=== PATIENT | male | born 1995 | race Caucasian/White ===

== ENCOUNTER 2018-05-16 21:01 | Emergency (ER) | payer BC | END 2018-05-16 21:17 | disposition left against medical advice (07) | LOC: ERS 21:01 | DX: Z53.21 Procedure and treatment not carried out due to patient leaving prior to being seen by health care provider (principal) ==

== ENCOUNTER 2018-05-16 21:36 | Emergency (ER) | payer BC, SELFPAY ==
[2018-05-16 22:29] LABS: #Basophils 0.1 thou/uL (0.0-0.2); #Lymphocytes 1.4 thou/uL (1.20-3.40); #Monocytes 0.8 thou/uL (0.11-0.59); #Neutrophils 6.4 thou/uL (1.40-6.50); %Basophils 0.9 % (0.0-1.0); %Eosinophils 0.1 % (0.0-10.0); %Lymphocytes 15.8 % (21.0-51.0); %Monocytes 9.3 % (0.0-10.0); %Neutrophils 73.9 % (42.0-75.0); Hemoglobin 15.4 g/dL (14.0-18.0); Mean Corpuscular HGB CONC 35.3 g/dL (32.0-36.0); Mean Corpuscular Hemoglobin 31.2 pg (27.0-31.0); Mean Corpuscular Volume 88.5 fL (78.0-98.0); Mean Platelet Volume 6.9 fL (7.4-10.4); Platelet Count 224 thou/uL (130-400); RBC Distribution Width 10.9 % (11.5-14.5); Red Blood Cell (RBC) Count 4.92 mill/uL (4.70-6.10); White Blood Cell (WBC) Count 8.7 thou/uL (4.8-10.8)
[2018-05-16 22:42] LABS: ALT (SGPT) 18 U/L (8-55); AST (SGOT) 17 U/L (5-34); Albumin 4.5 g/dL (3.5-5.0); Alkaline Phosphatase 64 U/L (40-150); Anion Gap 14 mmol/L (10-20); BUN (Urea Nitrogen) 11 mg/dL (8.9-20.6); Bilirubin, Total 0.6 mg/dL (0.2-1.2); Calc. Creatinine Clearance 0 mL/min (70-130); Calcium 9.6 mg/dL (7.8-10.44); Carbon Dioxide 24 mmol/L (22-29); Chloride 104 mmol/L (98-107); Estimated GFR-MDRD Greater than 90; Globulin 2.7 g/dL (2.4-3.5); Glucose 106 mg/dL (70-105); Potassium 3.5 mmol/L (3.5-5.1); Protein, Total 7.2 g/dL (6.0-8.3); Sodium 138 mmol/L (136-145)
[2018-05-16] MEDS ORDERED: Aspirin Chewable 81 MG TAB ONE (23:50)
--- NOTE | 2018-05-17 07:00 | CT ---
CT HEAD WITHOUT CONTRAST: CT ANGIOGRAM HEAD WITH IV CONTRAST AND 3D RECONSTRUCTIONS: 05/16/2018 HISTORY: Headache. Bilateral tingling and tightness. Nausea. The patient states the nausea and headache hav e since subsided. FINDINGS: CT HEAD: There is no evidence of a hemorrhage, acute infarction, mass effect, or midline shift. The ventricular system is normal in size, shape, and position. The visualized paranasal sinuses and mas toid air cells are clear. The calvarial structures are intact without evidence of a fracture. CT ANGIO HEAD: The visualized distal vertebral arteries appear patent. There is a focus of slight i rregularity within the basilar artery. This is very focal in nature. Subtle focal dissection cannot be entirely excluded based on this examination. The remainder of the basilar artery is patent. There is a type origin of the right posterior cerebral artery, which is patent. The left poste rior cerebral artery is patent. The bilateral middle cerebral and anterior cerebral arteries are patent. The anterior communicating artery is visualized and appears patent. No branch occlusion or focal stenosis is appreciated involv ing the nome of [place]. No focal aneurysm is seen, within the limitations of the technique of this exam. IMPRESSION: 1. Slight focal irregularity involving the proximal basilar artery. This most likely artifactual an d related to beam hardening artifact. Focal dissection in this less likely and this is not typical a ppearance for a focal diseection. Follow-up MRI and MRA is suggested if patient's sypmtoms persist, 2. No focal stenosis or branch occlusion is seen involving the nome of [place]. 3. No acute intracranial abnormalities demonstrated. 4. The above findings, concerning the basilar artery, were discussed with Dr. Nazario in the emergen cy department on 05/16/2018 at 0029 hours. CODE CR POS: [facility]
--- NOTE | 2018-05-17 07:57 | CT ---
CT ANGIOGRAM NECK WITH IV CONTRAST AND 3D RECONSTRUCTIONS: 05/16/2018 HISTORY: Headache with bilateral tingling and tightness. Nausea. COMPARISON: None available. FINDINGS: The origins of the great vessels are not well delineated due to dense contrast within the innominate vein and subclavian vein, resulting in significant streak artifact. The left vertebral artery does a rise from the aortic arch, which is a normal variant. The proximal arterial vessels, at the level of the chest, are not well seen due to significant streak artifact but appear grossly patent where visu alized. The origin of the left common carotid artery is completely obscured; however, the remainder of the left common carotid artery is patent. The right common carotid artery is patent. The bilater al internal and external carotid arteries are patent. The origin of the left vertebral artery is not well seen, but the vertebral arteries are otherwise pa tent and codominant. The most distal vertebral arteries, at the skull base, are not imaged but appea r grossly patent on CTA head, also obtained on this date. IMPRESSION: 1. Patent bilateral internal carotid arteries, without focal stenosis, according to NASCET criteria. 2. Patent bilateral vertebral arteries, based on NASCET criteria, but there is obscuration of the or igin of the left vertebral artery, and the most distal vertebral arteries are not completely imaged. Please see CTA head for further details. POS: [facility]
--- NOTE | 2018-05-17 08:44 | RAD ---
PORTABLE AP CHEST RADIOGRAPH: Date: 05-16-18 History: Chest pain, headache, nausea. Comparison: None available. FINDINGS: The cardiac silhouette and pulmonary vasculature are within normal limits. Lungs are clear. Osseous s tructures are intact. There is contrast seen in the renal collecting systems related to recent contra sted study. IMPRESSION: No acute cardiopulmonary process. POS: [facility]
== END 2018-05-17 00:17 | disposition home or self-care (01) ==
LOC: SCSER 21:36
DX: R07.89 Other chest pain (principal); R20.2 Paresthesia of skin
CPT/HCPCS: 70496; 70498; 71045; 80053; 84484; 85025; 93005